=== PATIENT | female | born 1955 | race Caucasian/White ===

== ENCOUNTER 2020-12-29 12:02 | Emergency (ER) | payer OTHER, MEDICAID, SELFPAY ==
[2020-12-29 12:16] VITALS: BMI 30.4
--- NOTE | 2020-12-29 12:44 | ED.PSYCH ---
HPI - Psych General Chief Complaint: Psychiatric Symptoms Stated Complaint: crisis Time Seen by Provider: 12/29/20 12:33 Source: patient and family Mode of arrival: ambulatory Limitations: no limitations History of Present Illness HPI Narrative: 65 y/o female with ovarian cancer s/p recent treatment, history of anxiety who presents to the ER with acute anxiety. Her sister dropped her off because she was hyperventilating and having a panic attack. Patient reports that her mother is selling the house that her and her mother both live in. Her mother is planning on moving away. The patient is very anxious about being alone. She does not want to live alone. She started having a panic attack and hyperventilating today and the sister did know what to do so she brought her to the emergency room for further evaluation. Patient denies shortness of breath or chest pain. She is tearful and anxious on arrival. She denies any history of episodes like this in the past. complaint: anxiety Onset (ago): hour(s) Duration: constant History of same: No Relieving factors: none Exacerbating factors: none Context: significant life stressor Associated psychiatric symptoms: none Associated symptoms: denies other symptoms Treatments prior to arrival: none Related Data Allergies Allergy/AdvReac Type Severity Reaction Status Date / Time No Known Allergies Allergy Unverified 07/30/20 14:27 Review of Systems Review of Systems: Constitutional: No Fever, No Chills Cardiovascular: No Chest Pain, No SOB Respiratory: No Cough, No Sputum Gastrointestinal: No Nausea, No Vomiting, No Diarrhea, No abdominal Pain Musculoskeletal: No joint pain, No Myalgias Skin: No Skin Lesions, No rash Neuro: No Weakness, No Numbness, No Dizziness, + Headache Psych: + Anxiety/Panic, No Depression, No SI, No HI Heme/Lymph: No Bruising, No Lymphadenopathy PMFSH Social History Social History (System 07/30/20 @ 14:27 by Savanah Castelan) Alcohol intake: current Alcohol intake frequency: a few times a month Patient Tobacco Use Status: Current everyday Tobacco user Use of substances other than those prescribed or required for medical reasons: No Advance Directives: No Advance Directives Information Provided: No Patient : No Physical Exam Vital Signs: Vital Signs: Last Vital Signs Temp 98.0 F 12/29/20 12:50 Pulse 85 12/29/20 12:50 Resp 28 H 12/29/20 12:50 BP 139/96 H 12/29/20 12:50 Pulse Ox 98 12/29/20 12:50 Body Mass Index 30.4 Appearance: Alert, tearful and breathing rapidly. Speaking incoherently. Eyes: Pupils equal, round and reactive to light. ENT: Pharynx normal. Neck: Normal inspection. Neck supple. CVS: Normal heart rate and rhythm. Pulses normal. Respiratory: No respiratory distress. Breath sounds normal. Abdomen: Soft and nontender. +BS x4 Skin: Skin warm and dry. Normal skin color. Normal skin turgor. No rashes. Extremities: No lower extremity edema. Neuro: Oriented X 3. No motor deficit. No sensory deficit. Ambulates with steady gait. No suicidal ideations. Course Course Course Narrative: 65-year-old female presenting to the ER with a panic attack today. This is in the setting of a significant life stressor. She was slightly tachypneic on arrival with a straight rate in the high 20s. This has resolved. We have given her low dose of Ativan with significant improvement in her symptoms. Basic lab workup is pending will get care team to see the patient. Do not anticipate she will require any sort of inpatient level of care Reevaluation(s) Reevaluation #1: Labs are showing a slightly elevated white blood cell count which she has had before. She also has some mild hypochloremic hyponatremia with a sodium of 131 and a slightly elevated BUN. Calcium is also slightly elevatedThis is consistent with some mild dehydration. She admits to not eating and drinking well. We reviewed discussed the results of her labs and she agrees to increase her oral hydration. She was seen by the care team in the pot. She is stable for discharge home. She has hold Ativan prescription at home that she never took. She was given resources today. She will follow-up with her doctor. Stable for discharge home. Consultations Consultation #1: Care team MDM - Psych Lab Data Result diagrams: 12/29/20 13:22 12/29/20 13:22 Labs: Lab Results 12/29/20 12/29/20 12/29/20 Range/Units 13:21 13:22 13:22 WBC 14.3 H (4.8-10.8) X10*3/uL RBC 3.88 L (4.20-5.50) X10*6/uL Hgb 12.1 (12.0-16.0) g/dl Hct 36.7 L (37-47) % MCV 94.6 (80-98) fL MCH 31.2 (27.0-33.0) pg MCHC 33.0 (31.0-35.0) g/dl RDW 14.9 (11.0-16.0) % Plt Count 316 (160-400) X10*3/uL MPV 9.1 L (9.4-12.3) fL Immature Gran % (Auto) 0.5 H (0.0-0.4) % Neut % (Auto) 73.7 H (45-73) % Lymph % (Auto) 16.4 L (20-40) % [place] % (Auto) 6.7 (2-11) % Eos % (Auto) 2.4 (0-4) % Baso % (Auto) 0.3 (0-2) % Lymph # (Auto) 2.3 (1.2-4.9) X10*3/uL [place] # (Auto) 1.0 (0.1-1.2) X10*3/uL Eos # (Auto) 0.3 (0.0-0.4) X10*3/uL Baso # (Auto) 0.0 (0.0-0.2) X10*3/uL Abs Immat Gran (auto) 0.07 H (0.00-0.03) X10*3/uL Absolute Neuts (auto) 10.5 H (2.0-8.3) X10*3/uL Absolute Nucleated RBC 0.000 (0.0-0.012) X10*3/uL Nucleated RBC % (auto) 0.0 (0.0-0.2) /100WBC Sodium 131 L (135-145) mmol/L Potassium 4.1 (3.3-5.1) mmol/L Chloride 95 L (96-108) mmol/L Carbon Dioxide 26 (22-29) mmol/L Anion Gap 14 (12-20) BUN 17 H (9-16) mg/dL Creatinine 0.82 (0.5-1.4) mg/dL Estim Creat Clear Calc 68.5 Estimated GFR > 60 Random Glucose 107 (60-115) mg/dL Calcium 10.4 H (8.4-10.2) mg/dL Total Bilirubin 0.7 (0.0-1.0) mg/dL AST 22 (5-31) U/L ALT 21 (0-31) U/L Alkaline Phosphatase 73 (39-117) U/L Total Protein 7.8 (6.5-8.0) g/dL Albumin 5.0 (3.5-5.0) g/dL Urine Opiates Screen (Not Detect) Urine Fentanyl Screen (Not Detect) Ur Barbiturates Screen (Not Detect) Ur Phencyclidine Scrn (Not Detect) Ur Amphetamines Screen (Not Detect) U Benzodiazepines Scrn (Not Detect) Urine Cocaine Screen (Not Detect) U Marijuana (THC) Screen (Not Detect) Ethyl Alcohol mg/dL COVID-19 (HOA) Negative (Negative) COVID-19 Clin Com See Note 12/29/20 12/29/20 Range/Units 13:22 13:22 WBC (4.8-10.8) X10*3/uL RBC (4.20-5.50) X10*6/uL Hgb (12.0-16.0) g/dl Hct (37-47) % MCV (80-98) fL MCH (27.0-33.0) pg MCHC (31.0-35.0) g/dl RDW (11.0-16.0) % Plt Count (160-400) X10*3/uL MPV (9.4-12.3) fL Immature Gran % (Auto) (0.0-0.4) % Neut % (Auto) (45-73) % Lymph % (Auto) (20-40) % [place] % (Auto) (2-11) % Eos % (Auto) (0-4) % Baso % (Auto) (0-2) % Lymph # (Auto) (1.2-4.9) X10*3/uL [place] # (Auto) (0.1-1.2) X10*3/uL Eos # (Auto) (0.0-0.4) X10*3/uL Baso # (Auto) (0.0-0.2) X10*3/uL Abs Immat Gran (auto) (0.00-0.03) X10*3/uL Absolute Neuts (auto) (2.0-8.3) X10*3/uL Absolute Nucleated RBC (0.0-0.012) X10*3/uL Nucleated RBC % (auto) (0.0-0.2) /100WBC Sodium (135-145) mmol/L Potassium (3.3-5.1) mmol/L Chloride (96-108) mmol/L Carbon Dioxide (22-29) mmol/L Anion Gap (12-20) BUN (9-16) mg/dL Creatinine (0.5-1.4) mg/dL Estim Creat Clear Calc Estimated GFR Random Glucose (60-115) mg/dL Calcium (8.4-10.2) mg/dL Total Bilirubin (0.0-1.0) mg/dL AST (5-31) U/L ALT (0-31) U/L Alkaline Phosphatase (39-117) U/L Total Protein (6.5-8.0) g/dL Albumin (3.5-5.0) g/dL Urine Opiates Screen Not Detected (Not Detect) Urine Fentanyl Screen Not Detected (Not Detect) Ur Barbiturates Screen Not Detected (Not Detect) Ur Phencyclidine Scrn Not Detected (Not Detect) Ur Amphetamines Screen Not Detected (Not Detect) U Benzodiazepines Scrn Not Detected (Not Detect) Urine Cocaine Screen Not Detected (Not Detect) U Marijuana (THC) Screen Not Detected (Not Detect) Ethyl Alcohol < 10 mg/dL COVID-19 (HOA) (Negative) COVID-19 Clin Com Critical Care Time Critical Care Time Critical Care Time: No Discharge Plan Discharge Clinical Impression: Acute anxiety Patient Disposition: Home, Self-Care Instructions: Anxiety (ED) Additional Instructions: Your presentation today was consistent with a panic attack. If you start to experience the symptoms again work on slow deep breathing. Take the medication you are prescribed as directed and if you are feeling anxious. Recommend following up with your doctor ALVINA.
[2020-12-29 12:50] VITALS: BP 139/96; PULSE 85; RESP 28; TEMP 36.7; O2SAT 98
[2020-12-29] MEDS: LORazepam 1 MG TABLET PO (12:58)
--- NOTE | 2020-12-29 13:15 | PC.NURSE ---
pt mother here
[2020-12-29 13:30] LABS: MANUAL DIFF FLAG NO
[2020-12-29 13:32] LABS: Basophils Percent Auto 0.3 % (0-2); Eosinophils Absolute Auto 0.3 X10*3/uL (0.0-0.4); Eosinophils Percent Auto 2.4 % (0-4); Hematocrit 36.7 % (37-47); Hemoglobin 12.1 g/dl (12.0-16.0); Imm Gran Abs Auto 0.07 X10*3/uL (0.00-0.03); Imm Gran Pct Auto 0.5 % (0.0-0.4); Lymphocytes Absolute Auto 2.3 X10*3/uL (1.2-4.9); Lymphocytes Percent Auto 16.4 % (20-40); Mean Corpuscular Hemoglobin 31.2 pg (27.0-33.0); Mean Corpuscular Volume 94.6 fL (80-98); Mean Platelet Volume 9.1 fL (9.4-12.3); Monocytes Percent Auto 6.7 % (2-11); Neutrophils Absolute Auto 10.5 X10*3/uL (2.0-8.3); Neutrophils Percent Auto 73.7 % (45-73); Platelet Count 316 X10*3/uL (160-400); Red Blood Count 3.88 X10*6/uL (4.20-5.50); Red Cell Distribution Width 14.9 % (11.0-16.0); White Blood Count 14.3 X10*3/uL (4.8-10.8)
[2020-12-29 13:45] LABS: Ethanol < 10 mg/dL
[2020-12-29 13:46] LABS: COVID-19 Test Negative (Negative); IDNOW Serial# 9DD0AD1C
[2020-12-29 13:47] LABS: Amphetamine Screen Urine Not Detected (Not Detect); Barbiturates, Urine Not Detected (Not Detect); Benzodiazepines Screen Urine Not Detected (Not Detect); Cannabinoid Screen Urine Not Detected (Not Detect); Cocaine Screen Urine Not Detected (Not Detect); Fentanyl, urine Not Detected (Not Detect); Opiate Screen Urine Not Detected (Not Detect); Phencyclidine Screen Urine Not Detected (Not Detect)
[2020-12-29 13:48] LABS: Alanine Aminotransferase 21 U/L (0-31); Alkaline Phosphatase 73 U/L (39-117); Anion Gap 14 (12-20); Aspartate Amino Transferase 22 U/L (5-31); Bilirubin Total 0.7 mg/dL (0.0-1.0); Blood Urea Nitrogen 17 mg/dL (9-16); Calcium 10.4 mg/dL (8.4-10.2); Carbon Dioxide 26 mmol/L (22-29); Chloride 95 mmol/L (96-108); Creatinine Clr Calc Pharmacy 68.5; Estimated Glomerular Filt Rate > 60; Glucose Random 107 mg/dL (60-115); Potassium 4.1 mmol/L (3.3-5.1); Sodium 131 mmol/L (135-145); Total Protein 7.8 g/dL (6.5-8.0)
--- NOTE | 2020-12-29 13:55 | PC.NURSE ---
pt and pt mother spoke with CARE team, plan to d/c home.
--- NOTE | 2020-12-29 16:15 | MHC.CARE ---
CARE Team met with patient in [facility], her mother was present, was supportive and helpful in providing information. Patient was alert and oriented, initially was weeping uncontrollably but calmed considerably after receiving?a dose of Ativan. 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 Mother of?patient recently decided to move into Assisted Living and began the process of selling the family home where she lived for 50 years. This caused significant distress to patient who has been weeping and feeling hopeless since that time. Her siblings have been filing a dumpster and cleaning out the doron on the property, seeing this plunged patient deeper into despair. Patient has made some attempts at finding her own housing but is unable to afford an apartment. Due to patient?s extreme reaction to the news, her mother has agreed to put her plans on hold until her daughter is ready to handle this process. Despite that, patient continued to lament, she does not want to live alone, will be homeless and such. Patient recently finished chemotherapy for uterine cancer. Spoke to patient?s daughter, she is concerned about her mother and this new level of anxiety, feels it is out of character and needs new medication or inpatient hospitalization. She added that patient?s ex- offered her a place to live and she declined. Patient denied suicidal ideation; she has no history of threats, gestures or attempts. Does not have a therapist but was open to a referral, in addition, she was given information about the Partial Hospitalization Program here at [facility]. She is seeing her PCP tomorrow, given contact info for CARE Team and [facility] Crisis. Patient does not meet the criteria for inpatient psychiatric admission and requested discharge, her mother has no concerns for her safety and also wanted patient to come home. Mine Car Mechanic, JUAN Ferris and ED provider, MITCHEL Hay consulted and in agreement? with plan of care.
== END 2020-12-29 14:32 | disposition home or self-care (01) ==
LOC: HO.ED 14:19
PROVIDERS: Physician Assistant; Emergency Provider Emergency Medicine; PCP Family Medicine
DX: F41.9 Anxiety disorder, unspecified (principal); E87.1 Hypo-osmolality and hyponatremia; Z20.822 Contact with and (suspected) exposure to COVID-19
CPT/HCPCS: 36415; 80053; 80307; 82077; 85025; 87635; 99284